=== PATIENT | male | born 1960 | race African-American/Black ===

== ENCOUNTER 2020-12-28 22:39 | Emergency (ER) | payer SELFPAY ==
[~2020-12-28] VITALS: Ht 185.4 cm; Wt 113.6 kg
[2020-12-28 22:46] VITALS: BP 144/93
--- NOTE | 2020-12-28 23:13 | PHYS DOC ---
Past History Past Surgical History: No Surgical History General Adult EDM: Chief Complaint: LOWEREXTREMITY INJURY HPI: HPI: Patient is a [age] year old [sex] who presents with [] Review of Systems: Review of Systems: Constitutional: Denies fever or chills Eyes: Denies redness or eye pain HENT: Denies nasal congestion or sore throat Respiratory: Denies cough or shortness of breath Cardiovascular: Denies chest pain or palpitations GI: Denies abdominal pain, nausea, or vomiting : Denies dysuria or hematuria Musculoskeletal: Denies back pain or joint pain Integument: Denies rash or skin lesions Neurologic: Denies headache, focal weakness or sensory changes Complete systems were reviewed and found to be within normal limits, except as d ocumented in this note. Allergies: Allergies: Allergies Coded Allergies Type Severity Reaction Last Updated Verified No Known Drug Allergies 12/28/20 No Physical Exam: PE: Constitutional: Well developed, well nourished, no acute distress, non-toxic appearance HENT: Normocephalic, atraumatic Eyes: PERRL, EOMI, conjunctiva normal, no discharge Neck: Normal range of motion, no tenderness, supple Lungs & Thorax: No respiratory distress, equal chest rise and fall Abdomen: Soft, no tenderness Skin: Warm, dry, no erythema, no rash Back: No tenderness, no CVA tenderness Extremities: No tenderness, ROM intact, no edema Neurologic: Alert and oriented X 3, normal motor function, normal sensory function, no focal deficits noted Psychologic: Affect normal, judgment normal Current Patient Data: Vital Signs: Vital Signs Date Time Temp Pulse Resp B/P (MAP) Pulse Ox O2 Delivery O2 Flow Rate FiO2 12/28/20 22:46 98.3 81 18 144/93 (110) 96 Room Air EKG: EKG: [] Radiology/Procedures: Radiology/Procedures: [] Heart Score: C/O Chest Pain: N/A Course & Med Decision Making: Course & Med Decision Making Pertinent Labs and Imaging studies reviewed. (See chart for details) Patient stable for discharge with outpatient follow-up with PCP. Discussed findings and plan with patient, who acknowledges understanding and agreement. Aretha Disclaimer: Aertha Disclaimer: This electronic medical record was generated, in whole or in part, using a voice recognition dictation system. Departure Departure: Impression: Primary Impression: Bleeding from varicose vein Disposition: HOME / SELF CARE / HOMELESS Condition: STABLE Referrals: PCP,NO (PCP) Patient Instructions: Bleeding Varicose Veins Additional Instructions: If bleeding persists please elevate leg and hold direct pressure on top of a Band-Aid. If after 5 minutes bleeding continues repeat x2. If bleeding continues after 15 minutes of holding pressure then present to the ER for further evaluation. JANES GARCIA DO Dec 28, 2020 23:13
== END 2020-12-28 23:23 | disposition home or self-care (01) ==
LOC: ER 22:39
DX: I83.892 Varicose veins of left lower extremity with other complications (principal)
CPT/HCPCS: 99283